=== PATIENT | male | born 1945 | race Caucasian/White ===

== ENCOUNTER 2019-08-30 11:06 | Outpatient (CLI) | payer MEDICARE, SELFPAY ==
--- NOTE | ~2019-08-30 | XR_ITS ---
XR heel RT min 2V DATE: 08/30/2019 11:26 INDICATION: Heel pain. Heel wound. TECHNIQUE: Axial and lateral views COMPARISON: None FINDINGS: 2 surgical clips are noted overlying the distal lower leg. There is posterior and more prominent plantar calcaneal enthesopathy. No fracture or dislocation or bone destruction of the calcaneus is evident. IMPRESSION: Plantar and posterior calcaneal enthesopathy Reviewed, dictated and finalized at location A.
== END 2019-08-30 11:07 | disposition home or self-care (01) ==
PROVIDERS: PCP Internal Medicine; Visit Provider Podiatrist Foot & Ankle Surgery
DX: M79.671 Pain in right foot (principal); M77.31 Calcaneal spur, right foot
CPT/HCPCS: 73650

== ENCOUNTER 2021-10-14 22:30 | Emergency (ER) | payer MEDICARE, SELFPAY ==
[2021-10-14 22:39] VITALS: BP 151/99; PULSE 81; RESP 18; TEMP 36.6; O2SAT 93
--- NOTE | 2021-10-14 22:53 | ED.WOUNDLAC ---
HPI - Wound/Laceration General Chief Complaint: Wound/Laceration Stated Complaint: LAC LLE Time Seen by Provider: 10/14/21 22:37 History of Present Illness HPI narrative: 68-year-old male with a history of afib on warfarin, alzheimer's dementia, here with his daughter and granddaughter for evaluation of a skin tear to his left lower extremity. Patient sustained a skin tear earlier this evening at a home. He has a history of Alzheimer's and is unsure how he obtained the skin tear. Daughter and granddaughter state that there was quite a bit of blood noted on the ground. He presented to [place] emergency department, was given a dressing and was told there was nothing to repair. He presents to the ED here because the wound continued to bleed despite applying pressure. Denies syncope. Patient denies any significant pain. Last tetanus unknown. Related Data Home Medications Medication Instructions Recorded Confirmed aspirin 81 mg chewable tablet 81 mg PO DAILY 03/01/19 03/01/19 sotalol 120 mg tablet (Betapace) 120 mg PO DAILY 03/01/19 03/01/19 tamsulosin 0.4 mg capsule (Flomax) 0.4 mg PO DAILY 03/01/19 03/01/19 vitamin B complex (B 1 tablet PO DAILY 03/01/19 03/01/19 Complex-Vitamin B12 tablet) warfarin 2.5 mg tablet (Coumadin) 2.5 mg PO QPM 03/01/19 03/01/19 Allergies Allergy/AdvReac Type Severity Reaction Status Date / Time azithromycin Allergy Mild Rash Verified 10/14/21 23:54 Review of Systems Review of Systems: Gen.: Denies fevers or chills Eyes: Denies eye pain or visual change ENT: Denies congestion Respiratory: Denies shortness of breath or cough CV: Denies chest pain or palpitations GI: Denies abdominal pain nausea, emesis or diarrhea denies burning, urgency, frequency or hematuria Musculoskeletal: Denies back pain or muscle pain Neuro: Denies numbness, tingling, weakness or focal weakness Skin: Reports skin tear Except as documented, all other systems reviewed and negative PMF Past Medical History Medical History Afib On chronic anticoagulation with Coumadin Arthritis Borderline diabetes BPH (benign prostatic hyperplasia) CAD (coronary artery disease) With CABG in 1999 CHF (congestive heart failure) CVA (cerebral vascular accident) 2016 with loss of peripheral vision Dementia Vascular dementia with behavioral disturbance Diabetes mellitus HTN (hypertension) Lung nodule Left lung base present during last hospitalization October 2018 Right knee meniscal tear Spinal stenosis UTI (urinary tract infection) Surgical History Surgical History H/O cervical discectomy H/O lumbar discectomy History of cardiac catheterization With stent placement Pacemaker Family History Family History (Updated 05/15/12 @ 10:00 by DOCTOR UNKNOWN) Other Diabetes mellitus Social History Social History (Updated 03/01/19 @ 03:56 by Arcelia Varma, ) Social History: The patient is and lives at home with his . He is nonambulatory at baseline. Primary care physician is Dr. Savage. Patient is currently listed as a full code but per prior medical records the patient had been a DNR. Family is not available at this time to clarify patient's code status. 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
[2021-10-14 23:04] LABS: Hematocrit 37.8 % (42.0-52.0)
[2021-10-14 23:17] LABS: INR 3.9; Prothrombin Time 37.3 Seconds (11.1-14.7)
[2021-10-14 23:18] LABS: Partial Thromboplastin Time 69.3 SECONDS (22.3-36.8)
[2021-10-14] MEDS: CELLULOSE OXIDIZED 4 x 8 INCH 1 PKT XX (23:33)
[2021-10-14 23:54] VITALS: BP 147/81; PULSE 79; RESP 18; O2SAT 95
--- NOTE | 2021-10-15 00:38 | PC.NURSE ---
VOICEMAIL LEFT ON 1373 FOR WOUND/OSTOMY CENTER REGARDING NEW CONSULT. CONSULT ORDERED BY PROVIDER
[2021-10-15] MEDS: TETANUS,DIPHTHERIA,AC PERTUSSIS ADULT (0.5 ML) BOOSTRIX IM (00:46)
[2021-10-15 00:50] VITALS: BP 139/72; PULSE 92; RESP 18; O2SAT 95
[2021-10-15] MEDS: SOLOSITE WOUND GEL 85 GM TUBE 1 APPLIC TOPICAL (01:21)
[2021-10-15 02:18] VITALS: BP 139/72; PULSE 92; RESP 20; O2SAT 95
== END 2021-10-15 02:20 | disposition home or self-care (01) ==
PROVIDERS: Physician Assistant; Emergency Provider Emergency Medicine; PCP Internal Medicine
DX: S81.812A Laceration without foreign body, left lower leg, initial encounter (principal); L89.323 Pressure ulcer of left buttock, stage 3; Z23 Encounter for immunization; G30.9 Alzheimer's disease, unspecified; F02.80 Dementia in other diseases classified elsewhere, unspecified severity, without behavioral disturbance, psychotic disturbance, mood disturbance, and anxiety; I48.91 Unspecified atrial fibrillation; I10 Essential (primary) hypertension; I69.998 Other sequelae following unspecified cerebrovascular disease; H53.8 Other visual disturbances; N40.0 Benign prostatic hyperplasia without lower urinary tract symptoms; I25.10 Atherosclerotic heart disease of native coronary artery without angina pectoris; Z95.1 Presence of aortocoronary bypass graft; M19.90 Unspecified osteoarthritis, unspecified site; Z95.5 Presence of coronary angioplasty implant and graft; Z87.440 Personal history of urinary (tract) infections; Z87.891 Personal history of nicotine dependence; Z79.01 Long term (current) use of anticoagulants; X58.XXXA Exposure to other specified factors, initial encounter
CPT/HCPCS: 36415; 85014; 85018; 85610; 85730; 90471; 90715; 99283

== ENCOUNTER 2021-10-18 20:34 | Inpatient (IN) | payer MEDICARE, SELFPAY ==
[2021-10-18] VITALS (12 sets, daily range): BP systolic 104–113; BP diastolic 54–65; PULSE 83–93; RESP 19–35; TEMP 36.8–37.7; O2SAT 90–97
--- NOTE | ~2021-10-18 | XR_ITS ---
EXAMINATION: XR chest 1V portable DATE: 10/21/2021 06:06 INDICATION: COVID-19 pneumonia. TECHNIQUE: A single frontal view of the chest was obtained. COMPARISON: Chest single view 10/18/2021, CT abdomen and pelvis 11/18/2018 FINDINGS: The patient is rotated to his right. There are airspace opacities in the lower lung zones. No pleural effusion or pneumothorax. Cardiomegaly is noted. Median sternotomy wires and mediastinal s urgical clips are seen, likely from prior coronary artery bypass grafting. There is a left chest wall pacer with leads in the right atrium and right ventricle. There is an additional lead in right ventr icle. There are suture anchors in left scapula. There are changes of anterior fusion procedure in cer vical spine. IMPRESSION: 1. Worsened airspace opacities in the lower lung zones, consistent with atelectasis versus pneumonia. 2. Cardiomegaly. Reviewed, dictated and finalized at location A. IMPRESSION: 1. Worsened airspace opacities in the lower lung zones, consistent with atelect asis versus pneumonia. 2. Cardiomegaly.
--- NOTE | ~2021-10-18 | XR_ITS ---
EXAMINATION: XR chest 1V portable Exam Date/Time: 10/18/2021 21:00 CDT HISTORY: COVID + SOB Comparison: 02/28/2019. RESULT: Exam limited by rotation and low lung volumes. Lines, tubes, and devices: Cervical spine fusion hardware. Left chest pacer with intact leads. Intac t sternotomy wires. Lungs and pleura: Clear. Cardiomediastinal silhouette: Stable. Other: No acute osseous or upper abdominal finding. IMPRESSION: No acute cardiopulmonary process. Reviewed, dictated and finalized at location K.
--- NOTE | ~2021-10-18 | XR_ITS ---
EXAMINATION: XR chest 1V portable DATE: 10/22/2021 05:57 INDICATION: COVID-19 pneumonia. TECHNIQUE: A single frontal view of the chest was obtained. COMPARISON: Chest single view 10/21/2021, CT abdomen and pelvis 11/18/2018 FINDINGS: There are airspace opacities in the mid and lower lung zones. No pleural effusion or pneumo thorax. Cardiomegaly is noted. Median sternotomy wires and mediastinal surgical clips are seen, likel y from prior coronary artery bypass grafting. There is a left chest wall pacer with leads in the righ t atrium and right ventricle. There is an additional lead in right ventricle. There are changes of an terior fusion procedure in cervical spine. Suture anchors overlie left acromion. IMPRESSION: 1. Stable airspace opacities in the mid and lower lung zones, consistent with atelectasis versus pneu monia. 2. Cardiomegaly. Reviewed, dictated and finalized at location A. IMPRESSION: 1. Stable airspace opacities in the mid and lower lung zones, consistent with a telectasis versus pneumonia. 2. Cardiomegaly.
--- NOTE | 2021-10-18 20:52 | ECG_ITS ---
Measurements Intervals Delta Rate: 87 P: 220 MO: 139 QRS: -53 QRSD: 173 T: 35 QT: 440 QTc: 530 Interpretive Statements ELECTRONIC ATRIAL PACEMAKER ELECTRONIC VENTRICULAR PACEMAKER Electronically Signed On 10-19-2021 11:38:08 CDT by Zen Ayon M.D.
--- NOTE | 2021-10-18 20:54 | ED.SOB ---
HPI - SOB/Dyspnea General Chief Complaint: Shortness of Breath/Dyspnea Stated Complaint: COVID +, SOB Time Seen by Provider: 10/18/21 20:48 History of Present Illness HPI Narrative: Patient is a 76-year-old male with a history of Alzheimer's, atrial fibrillation on warfarin and pacemaker placement here via EMS for evaluation of dizziness in the setting of a positive COVID test. Patient tells me he is currently asymptomatic and is unsure why he is here. Spoke with patient's daughter; states that patient had low grade temperature at home, took home COVID test which was positive. She states that patient has been coughing at nighttime, and has been more weak than usual, and has not been walking. He denies any chest pain, leg swelling. Daughter states that she has been taking care of him all by herself and is requesting admission for placement as she has had trouble doing so by herself. Related Data Home Medications Medication Instructions Recorded Confirmed sotalol 120 mg tablet (Betapace) 120 mg PO DAILY 03/01/19 10/19/21 tamsulosin 0.4 mg capsule (Flomax) 0.4 mg PO DAILY 03/01/19 10/19/21 vitamin B complex (B 1 tablet PO DAILY 03/01/19 10/19/21 Complex-Vitamin B12 tablet) warfarin 2.5 mg tablet (Coumadin) 7.5 mg PO QPM 03/01/19 10/19/21 clopidogrel 75 mg tablet 75 mg PO DAILY 10/19/21 10/19/21 Allergies Allergy/AdvReac Type Severity Reaction Status Date / Time azithromycin Allergy Mild Rash Verified 10/14/21 23:54 Review of Systems Review of Systems: Gen.: Denies fevers or chills Eyes: Denies eye pain or visual change ENT: Denies congestion Respiratory: Denies shortness of breath or cough CV: Denies chest pain or palpitations GI: Reports abdominal pain nausea, emesis or diarrhea denies burning, urgency, frequency or hematuria Musculoskeletal: Denies back pain or muscle pain Neuro: Denies numbness, tingling, weakness or focal weakness Skin: Denies rash 10 point review of systems negative, other than as per history of present illness, past medical history and other positives and review of systems [facility] Past Medical History Medical History (Updated 10/19/21 @ 03:07 by Jazzy Bull MD) Afib On chronic anticoagulation with Coumadin Arthritis Borderline diabetes BPH (benign prostatic hyperplasia) CAD (coronary artery disease) With CABG in 1999 CHF (congestive heart failure) CVA (cerebral vascular accident) 2016 with loss of peripheral vision Dementia Vascular dementia with behavioral disturbance Diabetes mellitus HTN (hypertension) Lung nodule Left lung base present during last hospitalization October 2018 Right knee meniscal tear Spinal stenosis UTI (urinary tract infection) Surgical History Surgical History H/O cervical discectomy H/O lumbar discectomy History of cardiac catheterization With stent placement Pacemaker Family History Family History (Updated 05/15/12 @ 10:00 by DOCTOR UNKNOWN) Other Diabetes mellitus Social History Social History (Updated 03/01/19 @ 03:56 by Arcelia Varma DO) Social History: The patient is and lives at home with his . He is nonambulatory at baseline. Primary care physician is Dr. Savage. Patient is currently listed as a full code but per prior medical records the patient had been a DNR. Family is not available at this time to clarify patient's code status. 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 Clear to auscultation bilaterally with n
[2021-10-18] MEDS: ACETAMINOPHEN 325 MG TABLET 650 MG PO (21:22)
[2021-10-18 22:21] LABS: Alanine Aminotransferase 18 U/L (6-50); Albumin Level 3.7 g/dL (3.5-5.1); Alkaline Phosphatase 72 U/L (38-126); Anion Gap 9 mmol/L (8-16); Aspartate Amino Transferase 35 U/L (17-59); Basophils Percent Auto 0.6 % (0.2-1.2); Bilirubin,Total 0.9 mg/dL (0.2-1.3); Blood Urea Nitrogen 16 mg/dL (9-20); Calcium 8.6 mg/dL (8.4-10.2); Carbon Dioxide 28 mmol/L (22-30); Chloride 97 mmol/L (98-107); Eosinophils Absolute Auto 0.2 K/mm3 (0-0.3); Eosinophils Percent Auto 3.8 % (0-4.4); Estimated Glomerular Filt Rate > 60; Glucose 102 mg/dL (65-110); Hematocrit 34.8 % (42.0-52.0); Immature Granulocyte Absolute 0.01 K/mm3 (0.00-0.031); Immature Granulocyte Percent A 0.2 % (0-0.5); Lymphocytes Percent Auto 16.8 % (18.3-44.2); Mean Corpuscular HGB Conc 31.6 g/dl (32-36); Mean Corpuscular Hemoglobin 29.8 pg (26-34); Mean Corpuscular Volume 94.3 fl (80-100); Mean Platelet Volume 10.5 fl (7.4-10.4); Monocytes Absolute Auto 0.6 K/mm3 (0.1-0.6); Monocytes Percent Auto 12.8 % (2.6-8.5); Neutrophils Absolute Auto 3.1 K/mm3 (1.3-6.7); Neutrophils Percent Auto 65.8 % (45.5-73.1); Platelet Count Result 237 k/mm3 (150-375); Potassium 3.6 mmol/L (3.4-5.0); Red Blood Count 3.69 M/mm3 (4.6-6.20); Red Cell Distribution Width 13.9 % (11.5-14.5); Sodium 134 mmol/L (137-145); White Blood Count 4.8 K/mm3 (4.5-10.0)
[2021-10-18 22:22] LABS: INR 1.9; Partial Thromboplastin Time 44.5 SECONDS (22.3-36.8); Prothrombin Time 21.5 Seconds (11.1-14.7)
[2021-10-18 22:33] LABS: NT Pro B Type Natriuretic Pept 2560 pg/mL (5-100); Troponin I 0.025 ng/mL (0.000-0.034)
[2021-10-19] VITALS (7 sets, daily range): BP systolic 99–115; BP diastolic 31–66; PULSE 77–80; RESP 18–28; TEMP 36.6–36.9; O2SAT 93–96; BMI 34.0
--- NOTE | 2021-10-19 | ECHO_ITS ---
Patient Info Name: Ethan Nicole Age: 76 years : 1945 Gender: Male Ht: 72 in Wt: 252 lbs BSA: 2.45 m2 HR: 97 bpm BP: 107 / 65 mmHg Exam Date: 10/19/2021 10:51 AM Exam Location: [facility] Patient Status: Inpatient Admit Date: 10/19/2021 Staff Ordering Physician: Jazzy Bull MD Operations Specialists: Nelson Mcgill, ELIGIO, RT Attending Provider: Jazzy Bull MD Referring Physician: Ml WILLOUGHBY; Exam Type: CA echo doppler color flow Study Info Indications I50.9 - Heart failure, unspecified Complete two-dimensional, color flow and Doppler transthoracic echocardiogram is performed. Summary 1. Complete two-dimensional, color flow and Doppler transthoracic echocardiogram is performed. 2. Suboptimal image quality, technical difficult study. LV size and wall thickness is at upper limits of normal. Difficult to assess LV systolic function due to suboptimal image quality and poor endocardial visualization. Ejection fraction approximately 45%. Mild biatrial enlargement. Normal mitral valve structure, mild MR. Normal aortic valve structure, no hemodynamically significant stenosis by Doppler. [id number] TR, severe pulmonary hypertension, RVSP 77 mmHg. Dilated IVC without respiratory collapse. Consider contrast enhanced echo. Left Ventricle Left ventricular chamber dimension is mildly enlarged. There is no increased left ventricular wall thickness. The left ventricular diastolic function is abnormal. Right Ventricle Right ventricular chamber dimension is normal. Right ventricular systolic function is normal. Left Atria Left atrial chamber dimension is mildly enlarged. Right Atria Right atrial chamber dimension is mildly enlarged. Aortic Valve The aortic valve is normal. There is no aortic valve stenosis. Pulmonic Valve The pulmonic valve is not well visualized. Mitral Valve The mitral valve has normal leaflets. There is mild mitral valve regurgitation. Tricuspid Valve The tricuspid valve leaflets are normal. There is mild to moderate tricuspid valve regurgitation. Severe pulmonary hypertension, estimated pulmonary arterial systolic pressure is 77 mmHg. Pericardium/Pleural The pericardium appears normal. Inferior Vena Cava Dilated inferior vena cava with no collapse upon inspiration consistent with elevated right atrial pressure, 15 mmHg. Aorta The aortic root size at the sinus of Valsalva is normal. Left Ventricular Outflow Tract Name Value Normal LVOT 2D LVOT Diameter 2.1 cm LVOT Doppler LVOT Peak Gradient 1 mmHg LVOT Mean Gradient 1 mmHg LVOT VTI 9 cm LVOT VTI/AV VTI Ratio 0.7 LVOT Stroke Volume 31 ml LVOT CO 3.0 l/min LVOT CI 1.2 l/min/m2 Mitral Valve Name Value Normal
--- NOTE | 2021-10-19 00:34 | PM.IMHP ---
H&P: HPI History of Present Illness Date/Time: 10/19/21 00:34 Chief Complaint: Generalized weakness Narrative: This is a 76-year-old male with past medical history significant for atrial fibrillation, dementia, coronary artery disease, congestive heart failure, stroke, hypertension, spinal stenosis. Patient was brought to the emergency room for evaluation due to daughter's concerns for patient's self-care after his suddenly on and he is unable to care for himself. Daughter has been taking care of his wound which is said decubitus ulcer and noted that he has been progressively weak unable to stand and has been getting cumbersome to take care of him at home bring seen him in for further assessment. Preliminary workup was significant for elevated brain natriuretic peptide at over 1999, patient had tested COVID positive in the outpatient setting as well. Electrocardiogram shows a paced rhythm a chest x-ray was cleared urine was clean. Patient was unable to give any history at the time of my visit which has been obtained upon reviewing medical records mainly and speaking to emergency room doctor patient could only give very limited yes or no and stated he did know why he was in the hospital. Patient has been admitted for further evaluation management and treatment pain Review of Systems Review of Systems: ROS unobtainable: Yes unobtainable due to medical condition (Dementia) [facility] Past Medical History Medical History (Updated 10/19/21 @ 03:07 by Jazzy Bull MD) Afib On chronic anticoagulation with Coumadin Arthritis Borderline diabetes BPH (benign prostatic hyperplasia) CAD (coronary artery disease) With CABG in 1999 CHF (congestive heart failure) CVA (cerebral vascular accident) 2015 with loss of peripheral vision Dementia Vascular dementia with behavioral disturbance Diabetes mellitus HTN (hypertension) Lung nodule Left lung base present during last hospitalization October 2018 Right knee meniscal tear Spinal stenosis UTI (urinary tract infection) Surgical History Surgical History H/O cervical discectomy H/O lumbar discectomy History of cardiac catheterization With stent placement Pacemaker Family History Family History (Updated 05/15/12 @ 10:00 by DOCTOR UNKNOWN) Other Diabetes mellitus Social History Social History (Updated 03/01/19 @ 03:56 by Arcelia Varma DO) Social History: The patient is and lives at home with his . He is nonambulatory at baseline. Primary care physician is Dr. Savage. Patient is currently listed as a full code but per prior medical records the patient had been a DNR. Family is not available at this time to clarify patient's code status. 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 Gender identity (if verbalized by the patient): Male Spiritual care concerns: No Agree to blood products: Yes Meds Home Medications and Allergies Home Medications Medication Instructions Recorded Confirmed Type aspirin 81 mg chewable tablet 81 mg PO DAILY 03/01/19 03/01/19 History sotalol 120 mg tablet (Betapace) 120 mg PO DAILY 03/01/19 03/01/19 History tamsulosin 0.4 mg capsule (Flomax) 0.4 mg PO DAILY 03/01/19 03/01/19 History vitamin B complex (B 1 tablet PO DAILY 03/01/19 03/01/19 History Complex-Vitamin B12 tablet) warfarin 2.5 mg tablet (Coumadin) 2.5 mg PO QPM 03/01/19 03/01/19 History cephalexin 500 mg capsule (Keflex) 500 mg PO Q8H #15 caps 03/02/19 Rx doxycycline hyclate 100 mg 100 mg PO BID #10 tabs 03/02/19 Rx tablet,delayed release Allergies Allergy/AdvReac Type Severity Reaction Status Date / Time azithromycin Allergy Mild Rash Verified 10/14/21 23:54 Vital Signs Vital Signs - 24 hr 10/18/21 20:50 10/18/21 20:54 10/18/21 2
[2021-10-19] MEDS: VITAMIN B COMPLEX CAPSULE 1 CAP PO (08:38)
[2021-10-19] MEDS: SOTALOL HCL 40 MG TABLET 120 MG PO (08:38)
[2021-10-19] MEDS: TAMSULOSIN HCL 0.4 MG CAPSULE PO (08:39)
[2021-10-19] MEDS: CLOPIDOGREL BISULFATE 75 MG TABLET PO (08:39)
--- NOTE | 2021-10-19 15:59 | PM.IMPN ---
Progress Note: A&P Assessment and Plan (1) COVID: Code(s): U07.1 - COVID-19 Status: Acute Assessment and Plan: Patient presents by EMS for evaluation dizziness. He recent tested positive COVID at home. Daughter states patient has been having a cough. Chest x-ray clear here. He remains on room air. Continue supportive care. Plans for possible placement so we will check COVID test here to verify. (2) Dementia: Code(s): F03.90 - Unspecified dementia without behavioral disturbance Status: Acute Assessment and Plan: Patient is unable to care for himself. His just recently and he has been staying with family. Plans for placement. Continue PT and OT. Discussed with family. (3) Afib: Code(s): I48.91 - Unspecified atrial fibrillation Status: Acute Assessment and Plan: Heart rate well controlled. EKG shows paced rhythm. Echocardiogram shows EF of 45% but this was suboptimal. Diastolic function was abnormal. He has [id number] TR and severe pulmonary hypertension (RVSP 77). No previous echo reports to compare to but he doses have CHF. Will repeat echo with contrast. Check ApneaLink. Dtr states patient is on Lasix 40mg daily which we will resume. (4) HTN (hypertension): Code(s): I10 - Essential (primary) hypertension Status: Acute Assessment and Plan: Patient's blood pressure was reviewed on 10/19 Blood pressure remains well controlled. Will continue current medications. (5) Diabetes mellitus: Code(s): E11.9 - Type 2 diabetes mellitus without complications Status: Acute Assessment and Plan: The patient's blood glucose was reviewed on 10/19 Glucose remains well controlled. He is diet controlled. Continue to monitor (6) CAD (coronary artery disease): Code(s): I25.10 - Atherosclerotic heart disease of [place] coronary artery without angina pectoris Status: Acute Assessment and Plan: Patient with CAD status post coronary artery bypass graft. Continue Plavix. Not on statin therapy for unclear reasons. Daughter states Dr Garcias took him off this. Will defer to cardiology. (7) Spinal stenosis: Code(s): M48.00 - Spinal stenosis, site unspecified Status: Acute Assessment and Plan: Stable. Start PT/OT (8) Decubitus ulcer: Code(s): L89.90 - Pressure ulcer of unspecified site, unspecified stage Status: Acute Assessment and Plan: Wound care consult. Continue current dressing changes. Started on cephalexin on for wound infection. Subjective Date/time seen: 10/19/21 15:59 Interval history: 76yo male with dementia here for weakness. He was recently diagnosed with COVID. Patient is alert but confused. This history is unreliable Review of Systems Review of Systems: ROS unobtainable: Yes unobtainable due to mental status Exam Narrative: AF 98.5 103/43 77 18 93% ra Gen - NARD Chest - CTA bilaterally, nml RR. PM noted in left upper chest CV - RRR S1/S2 Abd - Soft, obese, NT Ext - trace pedal edema. Left LE dressing clean and dry Psych - Nml mood and affect. Alert but confused. Skin - Warm and dry Objective Data Vital Signs Vital Signs: Vital Signs - 24 hr 10/18/21 20:50 10/18/21 20:54 10/18/21 21:21 Temperature 99.8 F H Pulse Rate 90 89 Respiratory Rate 20 Blood Pressure 104/54 L Pulse Oximetry 92 92 Oxygen Delivery Room Air Room Air 10/18/21 20:45 10/18/21 20:48 10/18/21 21:10 Temperature Pulse Rate 89 92 93 Respiratory Rate 25 H 35 H 35 H Blood Pressure 104/54 L Pulse Oximetry 92 92 91 Oxygen Delivery 10/18/21 21:20 10/18/21 21:30 10/18/21 21:31 Temperature Pulse Rate 93 85 83 Respiratory Rate 32 H 33 H 23 H Blood Pressure 113/65 Pulse Oximetry 91 90 91 Oxygen Delivery 10/18/21 22:11 10/18/21 22:15 10/18/21 22:30 Temperature 98.2 F Pulse R
[2021-10-19] MEDS: WARFARIN (*PBKC) 7.5 MG TABLET PO (17:48)
[2021-10-19] MEDS: polyethylene glycoL 3350 17 GM POWD.PACK PO (17:48)
[2021-10-19] MEDS: CEPHALEXIN 500 MG CAPSULE PO ×2 (17:49→23:05)
[2021-10-19 18:36] LABS: SARS-CoV-2 RNA PCR Positive
--- NOTE | 2021-10-20 | ECHO_ITS ---
Patient Info Name: Ethan Nicole Age: 76 years : 1945 Gender: Male Ht: 72 in Wt: 251 lbs BSA: 2.44 m2 HR: 90 bpm BP: 102 / 47 mmHg Heart Rhythm: Sinus Rhythm Technical Quality: Poor Exam Date: 10/20/2021 8:15 AM Exam Location: [facility] Patient Status: Inpatient Admit Date: 10/19/2021 Staff Ordering Physician: Siva Norris MD Vertical Punch Operator: Olivia Fuentes RDCS Attending Provider: Jazzy Blul MD Exam Type: CA echo limited w contrast Study Info Indications - CHF Limited two-dimensional transthoracic echocardiogram is performed with contrast. Contrast/Agitated Saline Contrast/Ag. Saline: Definity Amount: 3.00 ml Administered By: Olivia Fuentes RDCS Existing IV Access: Yes IV Access Condition: patent with no signs of infiltration Summary 1. Very technically difficult study with limited views. Definity contrast enhancement administered yet regional wall motion assessment limited due to poor endomyocardial border definition. 2. Left ventricular systolic function is probably normal, estimated at 55-60%, although not well visualized.. Left Ventricle Left ventricular systolic function is probably normal, estimated at 55-60%, although not well visualized.. Very technically difficult study with limited views. Definity contrast enhancement administered yet regional wall motion assessment limited due to poor endomyocardial border definition. Report Signatures
[2021-10-20 05:34] VITALS: BP 102/47; PULSE 79; RESP 18; TEMP 36.8; O2SAT 93
[2021-10-20 06:58] LABS: Hematocrit 36.7 % (42.0-52.0); Hemoglobin 11.8 g/dL (14.0-18.0); Mean Corpuscular HGB Conc 32.2 g/dl (32-36); Mean Corpuscular Hemoglobin 30.6 pg (26-34); Mean Corpuscular Volume 95.3 fl (80-100); Mean Platelet Volume 10.5 fl (7.4-10.4); Platelet Count Result 239 k/mm3 (150-375); Red Blood Count 3.85 M/mm3 (4.6-6.20); Red Cell Distribution Width 14.2 % (11.5-14.5); White Blood Count 3.9 K/mm3 (4.5-10.0)
--- NOTE | 2021-10-20 06:58 | PC.NURSE ---
Pt refused 0600 dose of cephalexin. Pt educated on importance of taking medication. Will encourage day nurse to try again due to pts altered mental status.
[2021-10-20 07:19] LABS: Albumin Level 3.8 g/dL (3.5-5.1); Anion Gap 10 mmol/L (8-16); Blood Urea Nitrogen 17 mg/dL (9-20); Calcium 7.9 mg/dL (8.4-10.2); Carbon Dioxide 26 mmol/L (22-30); Chloride 100 mmol/L (98-107); Estimated CRCL calculation 98 ml/min; Estimated Glomerular Filt Rate > 60; Glucose 92 mg/dL (65-110); Magnesium 2.1 mg/dL (1.6-2.3); Phosphorus 3.4 mg/dL (2.5-4.5); Sodium 136 mmol/L (137-145)
[2021-10-20 07:21] LABS: INR 1.7; Prothrombin Time 19.4 Seconds (11.1-14.7)
[2021-10-20] MEDS: PERFLUTREN LIPID MICROSPHERES 1.5 ML VIAL DILUTED TO 10 ML TOTAL VOLUME IV PUSH (08:15)
[2021-10-20] MEDS: VITAMIN B COMPLEX CAPSULE 1 CAP PO (08:59)
[2021-10-20] MEDS: polyethylene glycoL 3350 17 GM POWD.PACK PO (08:59)
[2021-10-20 09:00] VITALS: PULSE 78
[2021-10-20] MEDS: SOTALOL HCL 40 MG TABLET 120 MG PO (09:00)
[2021-10-20] MEDS: TAMSULOSIN HCL 0.4 MG CAPSULE PO (09:00)
[2021-10-20] MEDS: CLOPIDOGREL BISULFATE 75 MG TABLET PO (09:00)
[2021-10-20] MEDS: FUROSEMIDE 40 MG TABLET PO (09:00)
[2021-10-20] MEDS: CEPHALEXIN 500 MG CAPSULE PO ×3 (09:01→17:13)
[2021-10-20] MEDS: SILVERGEL (ELTA) 45 ML 1 APPLIC TOPICAL (09:01)
[2021-10-20 14:00] VITALS: BP 90/40; PULSE 82; RESP 24; TEMP 37; O2SAT 95
--- NOTE | 2021-10-20 15:06 | PM.IMPN ---
Progress Note: A&P Assessment and Plan (1) COVID: Code(s): U07.1 - COVID-19 Status: Acute Assessment and Plan: Patient presents by EMS for evaluation of dizziness. He recently tested positive for COVID at home. Daughter states patient has been having a cough. Chest x-ray clear here. He remains on room air. COVID was verified here. Continue supportive care. Spoke with family about discharge since they initially decided to bring the patient home. PT yesterday showing patient unable to initiate gait. No focal weakness. They were concerned that the patient is too weak for discharge and did agree with SNF. Care coordination consult to discuss placement options. (2) Dementia: Code(s): F03.90 - Unspecified dementia without behavioral disturbance Status: Acute Assessment and Plan: Patient is unable to care for himself. His just recently and he has been staying with family. As above. Continue PT and OT. (3) Afib: Code(s): I48.91 - Unspecified atrial fibrillation Status: Acute Assessment and Plan: Heart rate well controlled. EKG shows paced rhythm. Echo shows EF of 45% but this was suboptimal. Diastolic function was abnormal. He has fagy-lx-gulysfcy TR and severe pulmonary hypertension (RVSP 77). No previous echo reports to compare to but he doses have hx of CHF. Repeat echo with contrast showing EF normal at 55-60% but still poorly visualized. ApneaLink showing AHI 21 and RI 22. He spent 73 min with SpO2<88%. Dtr states patient was on Lasix 40mg daily which was resumed. Doubt he would wear CPAP so will try O2 at night. BP soft so will decrease the Lasix. Repeat Apnea link for hypoxia. INR 1.7. Give extra coumadin today. (4) HTN (hypertension): Code(s): I10 - Essential (primary) hypertension Status: Acute Assessment and Plan: Patient's blood pressure was reviewed on 10/20 Blood pressure too well controlled. Will back off on the lasix. (5) Diabetes mellitus: Code(s): E11.9 - Type 2 diabetes mellitus without complications Status: Acute Assessment and Plan: The patient's blood glucose was reviewed on 10/20 Glucose remains well controlled. He is diet controlled. 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 Continue Plavix. Not on statin therapy for unclear reasons. Daughter states Dr Garcias took him off this. Will defer to cardiology. (7) Spinal stenosis: Code(s): M48.00 - Spinal stenosis, site unspecified Status: Acute Assessment and Plan: Stable. Continue PT/OT (8) Decubitus ulcer: Code(s): L89.90 - Pressure ulcer of unspecified site, unspecified stage Status: Acute Assessment and Plan: Wound care consult. Continue current dressing changes. Started on cephalexin on for wound infection so will continue here. Plan DVT Prophylaxis: Coumadin Code status: Full Diet: Heart healthy Subjective Date/time seen: 10/20/21 15:06 Interval history: 76yo male with dementia here for weakness. He was recently diagnosed with COVID. Patient is alert but confused. He is unable to provide history. Discussed care with family by phone Review of Systems Review of Systems: ROS unobtainable: Yes unobtainable due to mental status Exam Narrative: AF 98.6 90/40 82 24 95% ra Gen - NARD Chest - clear anteriorly and in the flanks. nml RR CV - RRR S1/S2 with occasional extra beat Abd - Soft, obese, NT Ext - no pedal edema. Left LE dressing clean and dry Psych - Nml mood and affect Skin - Warm and dry Objective Data Vital Signs Vital Signs: Vital Signs - 24 hr 10/19/21 21:32 10/19/21 20:00 10/20/21 05:34 Temperat
[2021-10-20] MEDS: WARFARIN (*PBKC) 3 MG TABLET PO (17:12)
[2021-10-20] MEDS: WARFARIN (*PBKC) 7.5 MG TABLET PO (17:12)
[2021-10-20 22:00] VITALS: BP 100/60; PULSE 86; RESP 16; TEMP 37.1; O2SAT 92
[2021-10-20 23:31] VITALS: O2SAT 93
[2021-10-21] VITALS (8 sets, daily range): BP systolic 102–118; BP diastolic 50–63; PULSE 66–89; RESP 14–24; TEMP 36.1–36.9; O2SAT 91–100
[2021-10-21] MEDS: CEPHALEXIN 500 MG CAPSULE PO ×5 (00:26→23:25)
[2021-10-21 08:03] LABS: INR 2.3; Prothrombin Time 24.5 Seconds (11.1-14.7)
[2021-10-21 08:20] LABS: Anion Gap 11 mmol/L (8-16); Blood Urea Nitrogen 19 mg/dL (9-20); Calcium 7.8 mg/dL (8.4-10.2); Carbon Dioxide 29 mmol/L (22-30); Chloride 97 mmol/L (98-107); Estimated CRCL calculation 98 ml/min; Estimated Glomerular Filt Rate > 60; Glucose 94 mg/dL (65-110); Potassium 3.8 mmol/L (3.4-5.0); Sodium 137 mmol/L (137-145)
[2021-10-21] MEDS: polyethylene glycoL 3350 17 GM POWD.PACK PO (09:44)
[2021-10-21] MEDS: FUROSEMIDE 20 MG TABLET PO (09:45)
[2021-10-21] MEDS: TAMSULOSIN HCL 0.4 MG CAPSULE PO (09:45)
[2021-10-21] MEDS: SOTALOL HCL 40 MG TABLET 120 MG PO (09:45)
[2021-10-21] MEDS: VITAMIN B COMPLEX CAPSULE 1 CAP PO (09:45)
[2021-10-21] MEDS: CLOPIDOGREL BISULFATE 75 MG TABLET PO (09:45)
[2021-10-21] MEDS: SILVERGEL (ELTA) 45 ML 1 APPLIC TOPICAL (09:48)
--- NOTE | 2021-10-21 13:48 | PCOTNOTE ---
Attempted to see patient this pm, however patient was with physical therapy at this time. Will continue plan of care tomorrow.
--- NOTE | 2021-10-21 16:33 | PM.IMPN ---
Progress Note: A&P Assessment and Plan (1) COVID: Code(s): U07.1 - COVID-19 Status: Acute Assessment and Plan: Patient presents by EMS for evaluation of dizziness. He recently tested positive for COVID at home. He is not vaccinated against COVID. Daughter states patient has been having a cough. Chest x-ray on admission was clear. COVID was verified here. Family decided to proceed with SNF placement. But now patient has O2 requirement. Repeat CXR showing worsening airspace opacities in the lower lung zones. He is currently on 2 L. Could be progression of COVID. Could also just be related to atelectasis. Bacterial pneumonia seems less likely. Unlikely patient will be able to do incentive spirometry. Will have patient out of bed. Discussed with family about this change. Dtr states patient was symptomatic with cough beginning on 10/02 but no fevers. Unclear if this was the started of COVID. He did have a fever to 101 prior to this admission per family. Family refusing Remdesivir. They would be agreeable with Dexamethasone. Will check markers. Monitor overnight. If he remains stable or improves, plan discharge to SNF. (2) Dementia: Code(s): F03.90 - Unspecified dementia without behavioral disturbance Status: Acute Assessment and Plan: Patient is unable to care for himself. His just recently and he has been staying with family. Placement being arranged as above. Continue PT and OT. (3) Afib: Code(s): I48.91 - Unspecified atrial fibrillation Status: Acute Assessment and Plan: Heart rate well controlled. EKG shows paced rhythm. Echo shows EF of 45% but this was suboptimal. Diastolic function was abnormal. He has [id number]-fbkuxkvj TR and severe pulmonary hypertension (RVSP 77). No previous echo reports to compare to but he doses have hx of CHF. Repeat echo with contrast showing EF normal at 55-60% but still poorly visualized. For the severe pulmonary HTN, we did an ApneaLink that showed AHI 21 and RI 22. He spent 73 min with SpO2<88% Dtr states patient was on Lasix 40mg daily which was resumed. Doubt he would wear CPAP so we started O2 2L at night. Repeat Apnea link showing improvement in the hypoxia. He will need O2 at 2L at night chronically. INR 2.3. Continue Coumadin. Continue daily INR. (4) HTN (hypertension): Code(s): I10 - Essential (primary) hypertension Status: Acute Assessment and Plan: Patient's blood pressure was reviewed on 10/21 Blood pressure was too well controlled so we backed off on the lasix. BP still soft at times but better. Will follow (5) Diabetes mellitus: Code(s): E11.9 - Type 2 diabetes mellitus without complications Status: Acute Assessment and Plan: The patient's blood glucose was reviewed on 10/21 Glucose remains well controlled. He is diet controlled. 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 Continue Plavix. Not on statin therapy for unclear reasons. Daughter states Katerine took him off this. Will defer to cardiology. (7) Spinal stenosis: Code(s): M48.00 - Spinal stenosis, site unspecified Status: Acute Assessment and Plan: Stable. Continue PT/OT (8) Decubitus ulcer: Code(s): L89.90 - Pressure ulcer of unspecified site, unspecified stage Status: Acute Assessment and Plan: Wound care consult for decubitus ulcer and for left cuadra lesion. Continue current dressing changes. Started on cephalexin on for left cuadra wound infection so will continue here. Plan DVT Prophylaxis: Coumadin Code status: Full Diet: Heart healthy Subjective Date/time seen: 10/21/21 16:33 Interval history: 76yo male
[2021-10-21 17:54] LABS: Lactate Dehydrogenase 564 U/L (313-618)
[2021-10-21 18:04] LABS: CRP 2.6 mg/dL (<1.0)
[2021-10-21] MEDS: WARFARIN (*PBKC) 7.5 MG TABLET PO (18:08)
[2021-10-22] MEDS: CEPHALEXIN 500 MG CAPSULE PO ×2 (05:07→12:18)
[2021-10-22 06:00] VITALS: BP 110/62; PULSE 87; RESP 14; TEMP 36.1; O2SAT 97
[2021-10-22 06:44] LABS: Hematocrit 39.5 % (42.0-52.0); Hemoglobin 12.5 g/dL (14.0-18.0); Mean Corpuscular HGB Conc 31.6 g/dl (32-36); Mean Corpuscular Hemoglobin 30.2 pg (26-34); Mean Corpuscular Volume 95.4 fl (80-100); Mean Platelet Volume 10.7 fl (7.4-10.4); Platelet Count Result 242 k/mm3 (150-375); Red Blood Count 4.14 M/mm3 (4.6-6.20); Red Cell Distribution Width 13.9 % (11.5-14.5); White Blood Count 4.4 K/mm3 (4.5-10.0)
[2021-10-22 07:03] LABS: INR 3.3; Prothrombin Time 32.8 Seconds (11.1-14.7)
[2021-10-22 08:25] LABS: Anion Gap 8 mmol/L (8-16); Blood Urea Nitrogen 18 mg/dL (9-20); Calcium 7.9 mg/dL (8.4-10.2); Carbon Dioxide 31 mmol/L (22-30); Chloride 97 mmol/L (98-107); Estimated CRCL calculation 98 ml/min; Estimated Glomerular Filt Rate > 60; Glucose 98 mg/dL (65-110); Potassium 3.9 mmol/L (3.4-5.0); Sodium 136 mmol/L (137-145)
[2021-10-22 08:54] VITALS: PULSE 88
[2021-10-22] MEDS: CLOPIDOGREL BISULFATE 75 MG TABLET PO (08:54)
[2021-10-22] MEDS: TAMSULOSIN HCL 0.4 MG CAPSULE PO (08:54)
[2021-10-22] MEDS: VITAMIN B COMPLEX CAPSULE 1 CAP PO (08:54)
[2021-10-22] MEDS: SILVERGEL (ELTA) 45 ML 1 APPLIC TOPICAL (08:54)
[2021-10-22] MEDS: FUROSEMIDE 20 MG TABLET PO (08:54)
[2021-10-22] MEDS: SOTALOL HCL 40 MG TABLET 120 MG PO (08:54)
[2021-10-22] MEDS: polyethylene glycoL 3350 17 GM POWD.PACK PO (08:54)
[2021-10-22 09:10] VITALS: O2SAT 97
--- NOTE | 2021-10-22 10:04 | PCOTNOTE ---
Attempted to see patient this am, however patient refused. Upon entering patient sleeping lightly and aroused with introduction. Pt appeared sad, declining activity stating, There's nothing else left for me to see. Everything is gone. RN notified.
--- NOTE | 2021-10-22 12:12 | PM.DS ---
DS: Admitting Diagnosis Discharge Date 10/22/2021 Admitting Diagnosis Generalized weakness DS: Discharge Diagnosis Discharge Diagnosis (1) COVID: Code(s): U07.1 - COVID-19 Status: Acute Assessment and Plan: Patient presents by EMS for evaluation of dizziness.? He recently tested positive for COVID at home.? He is not vaccinated against COVID. Daughter states patient has been having a cough.? Chest x-ray on admission was clear. COVID was verified here. Family decided to proceed with SNF placement. But now patient has O2 requirement. Repeat CXR showing worsening airspace opacities in the lower lung zones.? He is currently on 2 L. Could be progression of COVID.? Could also just be related to atelectasis.? Bacterial pneumonia seems less likely.? Unlikely patient will be able to do incentive spirometry.? Will have patient out of bed.? Discussed with family about this change. Dtr states patient was symptomatic with cough beginning on 10/02 but no fevers. Unclear if this was the started of COVID. He did have a fever to 101 prior to this admission per family. Family refusing Remdesivir. They would be agreeable with Dexamethasone. Will check markers. Monitor overnight. If he remains stable or improves, plan discharge to SNF. (2) Dementia: Code(s): F03.90 - Unspecified dementia without behavioral disturbance Status: Acute Assessment and Plan: Patient is unable to care for himself. His just recently and he has been staying with family.? Placement being arranged as above.? Continue PT and OT. (3) Afib: Code(s): I48.91 - Unspecified atrial fibrillation Status: Acute Assessment and Plan: Heart rate well controlled.? EKG shows paced rhythm.? Echo shows EF of 45% but this was suboptimal.? Diastolic function was abnormal.? He has [id number]-ckerhqup TR and severe pulmonary hypertension (RVSP 77).? No previous echo reports to compare to but he doses have hx of CHF.? Repeat echo with contrast showing EF normal at 55-60% but still poorly visualized. For the severe pulmonary HTN, we did an ApneaLink that showed AHI 21 and RI 22. He spent 73 min with SpO2<88% Dtr states patient was on Lasix 40mg daily which was resumed. Doubt he would wear CPAP so we started O2 2L at night. Repeat Apnea link showing improvement in the hypoxia.?He will need O2 at 2L at night chronically. INR 2.3. Continue Coumadin. Continue daily INR. (4) HTN (hypertension): Code(s): I10 - Essential (primary) hypertension Status: Acute Assessment and Plan: Patient's blood pressure was reviewed on 10/21 Blood pressure was too well controlled so we backed off on the lasix. BP still soft at times but better. Will follow (5) Diabetes mellitus: Code(s): E11.9 - Type 2 diabetes mellitus without complications Status: Acute Assessment and Plan: The patient's blood glucose was reviewed on 10/21 Glucose remains well controlled.? He is diet controlled. 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 Continue Plavix. Not on statin therapy for unclear reasons. Daughter states Dr Garcias took him off this. Will defer to cardiology.? (7) Spinal stenosis: Code(s): M48.00 - Spinal stenosis, site unspecified Status: Acute Assessment and Plan: Stable (8) Decubitus ulcer: Code(s): L89.90 - Pressure ulcer of unspecified site, unspecified stage Status: Acute Assessment and Plan: Wound care consult for decubitus ulcer and for left cuadra lesion. Continue current dressing changes. Started on cephalexin on for left cuadra wound infection so will continue here. DS: Summary Hospital Course Hospital Course: Patient presents by EMS for evaluation of dizziness.? He
[2021-10-22 13:58] VITALS: BP 105/59; PULSE 82; RESP 22; TEMP 36.1; O2SAT 98
== END 2021-10-22 14:54 | DRG 178 ==
LOC: ANHED 23:43 → ANH3MEDSUR 10-19 04:41
PROVIDERS: Internal Medicine; Physician Assistant; Admitting Provider Internal Medicine; Emergency Provider Preventive Medicine Aerospace Medicine; PCP Internal Medicine; Visit Provider Family Medicine
DX: U07.1 COVID-19 (principal); J98.11 Atelectasis; I25.10 Atherosclerotic heart disease of native coronary artery without angina pectoris; M48.00 Spinal stenosis, site unspecified; I48.91 Unspecified atrial fibrillation; G30.9 Alzheimer's disease, unspecified; F02.80 Dementia in other diseases classified elsewhere, unspecified severity, without behavioral disturbance, psychotic disturbance, mood disturbance, and anxiety; I69.398 Other sequelae of cerebral infarction; H54.7 Unspecified visual loss; I11.0 Hypertensive heart disease with heart failure; I50.9 Heart failure, unspecified; E11.9 Type 2 diabetes mellitus without complications; M19.90 Unspecified osteoarthritis, unspecified site; L89.90 Pressure ulcer of unspecified site, unspecified stage; L98.9 Disorder of the skin and subcutaneous tissue, unspecified; Z79.01 Long term (current) use of anticoagulants; Z95.0 Presence of cardiac pacemaker; Z95.1 Presence of aortocoronary bypass graft; Z95.5 Presence of coronary angioplasty implant and graft; Z87.891 Personal history of nicotine dependence; Z28.310 Unvaccinated for COVID-19
CPT/HCPCS: 36415; 71045; 80048; 80053; 80069; 83615; 83735; 83880; 84484; 85025; 85027; 85610; 85730; 86140; 93005; 93306; 93308; 94762; 97110; 97161; 97166; 97530; 99285; A9270; C8924; C9803; Q9957; U0003; U0005

== ENCOUNTER 2022-05-25 11:11 | Outpatient (CLI) | payer MEDICARE, SELFPAY ==
--- NOTE | ~2022-05-25 | US_ITS ---
EXAMINATION: US retroperitoneal comp DATE: 05/25/2022 12:04 INDICATION: Urinary tract infection TECHNIQUE: Multiple ultrasound grayscale images of the kidneys were obtained. COMPARISON: 11/18/2018 FINDINGS: The right kidney measures 10.3 x 6.1 x 4.8 cm. The left kidney measures 12.0 x 6.0 x 4.2 cm. The kidn eys demonstrate normal echogenicity. There is no hydronephrosis in either kidney. No stones identifi ed. The bladder is normal. IMPRESSION: 1. Normal kidneys without hydronephrosis. Reviewed, dictated and finalized at location A. FARM GAUGER
== END 2022-05-25 11:12 | disposition home or self-care (01) ==
PROVIDERS: PCP Internal Medicine; Visit Provider Urology
DX: N39.0 Urinary tract infection, site not specified (principal)
CPT/HCPCS: 76770

== ENCOUNTER 2025-02-12 10:52 | Outpatient (CLI) | payer MEDICARE, SELFPAY ==
--- NOTE | ~2025-02-12 | CT_ITS ---
EXAM: CT abdomen pelvis without contrast INDICATION: Flank pain COMPARISONS: None. PROCEDURE: 100 mL of Isovue 300 was injected IV. Enteric contrast given. Dose reduction technique(s) used. FINDINGS: Exam is limited by patient motion artifact. The patient is unable to cooperate. There is cardiomegaly, particularly involving the left atrium. Pacing device enters from the right has leads in the right atrium and right ventricle. There are sternotomy wires. There are calcified pleural plaques. There is coronary arterial calcification. Lower chest: Lung bases are clear. Body wall: No abnormality demonstrated. ABDOMEN: Liver: Normal size and homogeneous parenchyma. Gallbladder: There is cholelithiasis. No bile duct dilatation. Spleen: Normal. Adrenals: Normal. Pancreas: No mass or adjacent stranding. Normal caliber duct. Kidneys: No calculus, mass or hydronephrosis. Aorta: Normal caliber. IVC: Normal. Retroperitoneum: No adenopathy. Stomach and visualized esophagus: No abnormality. PELVIS: Reproductive Organs: Coarse calcifications in the prostate Bladder: No nodule or calculus. Colon: No focal wall thickening or paracolic fat stranding. Small Bowel: No dilatation or wall thickening. Appendix: Normal. Mesentery: No adenopathy. Normal splanchnic veins. Peritoneum: No free fluid or free air. Bones: Again seen is a compression deformity of L1. There are findings consistent with DISH. There are degenerative changes, particularly at L5-S1, where there is calcification in the disc space and complete loss of disc space height. There are multiple vertebral endplate deformities IMPRESSION: No acute findings. Other findings as described. Reviewed, dictated and finalized at location A. S ORDER SPECIALIST
== END 2025-02-12 10:53 | disposition home or self-care (01) ==
LOC: MICIMG 10:54
PROVIDERS: PCP Internal Medicine; Visit Provider Urology
DX: R10.A0 Flank pain, unspecified side (principal)
CPT/HCPCS: 74176